=== PATIENT | female | born 1985 | race Caucasian/White ===

== ENCOUNTER 2017-09-25 07:30 | Inpatient (IN) ==
--- OUTSIDE RECORDS SUMMARY | 2017-10-25 05:26 | External Medical Summary | Continuity of Care Document ---
:1985 Author Organization [facility] Address [address] [place], [place] [id number] Phone Care Team Providers Name Role Phone Lucinda Montez MD Unavailable Unavailable Allergies, Adverse Reactions, Alerts Substance Reaction Severity Status No Known Drug Allergies Unknown Active Medications Medication Instructions Dosage Effective Dates Status Comments (start - stop) ONE DAILY take 1 tablet by oral - Active (unknown strength) route every day Problems Condition Effective Dates (start - stop) Clinical Status Follow-Up, Routine - Previous Low Transverse - Matern care for oth or susp poor fetl - grth, 2nd tri, unsp Other malformation of placenta, 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 of - Previous Low Transverse - Encounter for suprvsn of normal - , third trimester 30 weeks gestation of - Previous Low Transverse - Encounter for suprvsn of normal - , second trimester 27 weeks gestation of - Previous Low Transverse - Matern care for oth or susp poor fetl - grth, 2nd tri, unsp 19 weeks gestation of - Previous Low Transverse - Other malformation of placenta, second - trimester Encounter for suprvsn of normal - , second trimester 19 weeks gestation of - Previous Low Transverse - Encounter For Screening For - Streptococcus B 36 weeks gestation of - Matern care for oth or susp poor fetl - grth, 2nd tri, unsp Encounter for suprvsn of normal - , second trimester 14 weeks gestation of - Other malformation of placenta, second - trimester 23 weeks gestation of - Syncope and collapse - Encounter for suprvsn of normal - , second trimester 24 weeks gestation of - Abnormal Pap, LSIL Abnormal Pap, LSIL Encounter for initial prescription of contraceptive pills Follow-Up, Routine Follow-Up, Routine Encntr screen for infections w sexl - mode of transmiss Encounter for screening for oth - infec/parastc diseases Encounter for suprvsn of normal - , first trimester Encounter for screening of - mother 10 weeks gestation of - Encounter for suprvsn of normal - , third trimester 35 weeks gestation of - Encounter for suprvsn of normal - , third trimester 32 weeks gestation of - Migraines Active Active Procedures Procedure Date Unknown Results Test Name Date and Time Measure Units Reference Range Abnormal Flag Comments Unknown Advance Directives Directive Yes / No Effective Date File Name Unknown Encounters Encounter Practice Location Reason(s) Diagnoses Date Provider Care Team Description For Visit Members Geraldine Roman Previous Low Sep- Rodriguez Referring In Womens Transverse 8-201 Beth. Provider: Balaji James-SectionEncounte 7 700 Beth Rodriguez PO Box r For Medical K, 700 1522, Screening For [facility] [place], Streptococcus B36 , [place] [address] [place]O, weeks gestation 120, [place] 120, [id number], of Abel [place], [place] HARO, tel:[phone]. [id number] , [place]. tel: tel: [phone] Geraldine Roman Encounter for Sep- Rodriguez Referring In Womens suprvsn of normal 5-201 Beth. Provider: Lyndsey BROOKS, , third 7 700 Beth Rodriguez PO Box [id number] weeks Medical , 700 1522, gestation of [facility] [place], , [facility] Dr HARO, 120, [place] 120, [id number], Abel Roman, [place], [place], tel:+ [phone]. , [place]. tel: tel: [phone] Geraldine Roman Nov-0 Rodriguez In Womens 9-201 Beth. Health TODD, 7 700 PO [address] Medical [address], [place], , [facility] [place], 120, [id number], [place], [place], tel:[phone] , [place]. tel: [phone] Geraldine Roman Encounter for Oct-3 Rodriguez Referring In Womens suprvsn of normal -201 Beth. Provider: Lyndsey BROOKS, , third 7 700 Beth Rodriguez PO Box [id number] weeks Medical , 700 1522, gestation of [facility] [place], Dr, [facility] Dr HARO, 120, [place] 120, , Abel Roman, [place], [place], tel: [phone]. , [place]. tel: tel: [phone] Geraldine Roman Previous Low Oct-1 Rodriguez Referring In Womens Transverse 7-201 Beth. Provider: Lyndsey BROOKS, C-SectionEncounte 7 700 Beth Rodriguez PO Box r for suprvsn of [facility], 700 1522, normal , [facility] [place], third [id number] Dr, [facility] Dr HARO, weeks gestation 120, [place] 120, , of Abel Roman, [place], [place], tel: [phone]. , [place]. tel: tel: [phone] Geraldine Roman Previous Low Sep-2 Rodriguez Referring In Womens Transverse 5-201 Beth. Provider: Health TODD, C-SectionEncounte 7 700 Beth Rodriguez PO Box r for suprvsn of [facility], 700 1522, normal , [facility] [place], second , [facility] Dr HARO, weeks 120, [place] 120, [id number], gestation of Abel [place], [place], [place], tel: [phone]. , [place]. tel: tel: [phone] [facility] Previous Low Sep-2 Rodriguez Referring In Womens Ultrasound Transverse 5-201 Beth. Provider: Lyndsey BROOKS, C-SectionMatern 7 700 Beth Rodriguez PO Box care for oth or Medical K, 700 1522, [facility], 2nd tri, , [facility] Dr HARO, unspOther 120, [place] 120, , malformation of AbelAbel, [place] placenta, second [place], [place], tel: [id number] weeks [phone]. gestation of , [place]. tel: tel: [phone] [facility] Syncope and Sep-0 Rodriguez Referring In Womens collapseEncounter 1-201 Beth. Provider: Lyndsey BROOKS, for suprvsn of 7 700 Beth Rodriguez PO Box normal , Medical K, 700 1522, second [facility] [place], [id number] weeks , [facility] Dr HARO, gestation of 120, [place] 120, , Abel [place], [place] HARO, tel: [phone]. , [place]. tel: tel: [phone] [facility] Other Aug-2 Rodriguez Referring In Womens malformation of 8-201 Beth. Provider: Lyndsey BROOKS, placenta, second 7 700 Beth Rodriguez PO Box [id number] weeks Medical K, 700 1522, gestation of [facility] [place], , [facility] Dr HARO, 120, [place] 120, , Abel [place], [place] HARO, tel: [phone]. , [place]. tel: tel: [phone] [facility] Previous Low Cyril-3 Rodriguez Referring In Womens Transverse 1-201 Beth. Provider: Lyndsey BROOKS, C-SectionOther 7 700 Beth Rodriguez PO Box malformation of Medical K, 700 1522, placenta, second [facility], trimesterEncounte , [facility] Dr HARO, r for suprvsn of 120, [place] 120, [id number], normal , Abel Roman, second [place], tel: [id number] weeks [phone]. gestation of , [place]. tel: tel: [phone] Geraldine Roman Previous Low Cyril-3 Rodriguez Referring In Womens Ultrasound Transverse 1- Beth. Provider: Health TODD, C-SectionMatern 700 Beth Rodriguez PO Box care for oth or Medical K, 1522, susp poor fetl [facility], barby, 2nd tiny, , [facility] Dr HARO, unsp19 weeks 120, Moses 120, , gestation of Abel Roman, [place], [place], tel: [phone]. , [place]. tel: tel: [phone] Geraldine Roman Matern care for Prateek-2 Rodriguez Referring In Womens oth or susp poor -201 Beth. Provider: Lyndsey BROOKS, fetl [facility], 2nd 7 700 Beth Rodriguez PO Box tri, Medical K, 700 1522, unspEncounter for [facility], suprvsn of normal , [facility] Dr HARO, , second 120, [place] 120, [id number], [id number] weeks Abel Roman, gestation of [place], tel: [phone]. , [place]. tel: tel: [phone] Geraldine Roman Encntr screen for May-3 Rodriguez Referring In Womens infections w sexl 0-201 Beth. Provider: Lyndsey BROOKS, mode of 7 700 Beth Rodriguez PO Box transmissEncounte Medical K, 700 1522, r for screening [facility], for oth , [facility] Dr HARO, infec/parastc 120, Moses 120, , diseasesEncounter Abel Roman, for suprvsn of [place] HARO, tel: normal , [phone]. [facility] , . tel: trimesterEncounte tel: [phone] r for [id number] screening of [id number] weeks gestation of [facility] Abnormal Pap, Jan-0 Rodriguez Referring In Womens LSILAbnormal Pap, 8-201 Beth. Provider: Lyndsey BROOKS, LSILEncounter for 6 700 Beth Rodriguez PO Box [facility], 700 152, prescription of [place] [facility], contraceptive , [facility] Dr HARO, pillsPostpartum 120, [place] 120, , Follow-Up, Abel Roman, RoutinePostpartum [place] HARO, tel: Follow-Up, [phone]. Routine , . tel: tel: [phone] Geraldine Roman Fe-0 Rodriguez Referring In Womens Follow-Up, 9 Beth. Provider: Lyndsey BROOKS, Routine 6 700 Beth Shenb PO Box [facility], 700 1522, [place] [address], [facility] Dr HARO, 120, [place] 120, [id number], Abel Roman, [place] HARO, tel: [phone]. , . tel: tel: [phone] Geraldine Roman Dec-2 Dilan Referring In Womens 4-201 Demarco. 700 Provider: Lyndsey BROOKS, 5 Medical Beth Shenb PO Box [facility], 700 1522, , [facility] [place], [facility], [place] Dr HARO, Abel, [place] 120, [id number], Abel [place], [id number] [place], tel: , [place]. [phone]. tel: tel: [phone] Roman Oct-0 Rodriguez Referring In Womens 7-201 Beth. Provider: Lyndsey BROOKS, 5 700 Beth Rodriguez PO Box [facility], 700 1522, [place] [address], [facility] Dr HARO, 120, [place] 120, [id number], Abel [place], [place], tel: [phone]. , [place]. tel: tel: [phone] Geraldine Roman Sep-0 Rodriguez In Womens 9-201 Beth. Health PA, 5 700 PO Box Medical [address], [place] Dr [address]io, [place], 120, [id number], [facility] [place], tel: [phone] , [place]. tel: [phone] Geraldine Roman Cyril-0 Rodriguez Referring In Womens 7-201 Beth. Provider: Health PA, 5 700 Beth Rodriguez PO Box Medical K, 700 1522, [place] [address], [facility] [place], 120, [place] 120, , Abel [place], [place], [place], tel: [phone]. , [place]. tel: tel: [phone] Family History Family Member Diagnosis Age At Onset Paternal Grandfather Diabetes mellitus No family history of Breast Cancer Mother Osteopenia Maternal Grandmother Diabetes mellitus No family history of Uterine Cancer No family history of Pulmonary Embolism No family history of Ovarian Cancer No family history of Venous Thrombosis No family history of Colon Cancer Immunizations Vaccine Date Status Comments Tdap completed Source: New Immunization Record Influenza, injectable, completed Source: New Immunization Record quadrivalent, preservative free, 3 yrs or older Tdap completed Source: New Immunization Record Influenza, seasonal, injectable, completed Source: New Immunization Record preservative free, 3 yrs or older Payers Payer name Insurance type Covered democrat ID Authorization(s) [facility] [place] [id number] [facility] [place] [id number] [facility] [place] [id number] [facility] [place] [id number] [facility] [place] [id number] Social History Type Description Quantity Date Captured Unknown Vital Signs Date / Height Weight BMI Pulse Blood Temperature Respiratory Body Head BMI Time: Rate Pressure Rate Surface Circumference percentile Area Unknown Chief Complaint And Reason For Visit Unknown Chief Complaint And Reason For Visit Reason For Referral Reason For Referral Unknown Plan Of Care Date Type Action Status Appointment Saarhi Rodriguez BOOKED Appointment Sarahi Rodriguez [facility] R C/S,. PPTL BOOKED Future Order: Lab Order Pap Smear With HPV Reflex If ASCUS Ordered ([id number]) Future Order: Radiology Order Ultrasound OB Follow-up ([id number]) Ordered Future Order: Radiology Order Complete OB Ultrasound > 14 Ordered Weeks ([id number]) Date Type Problem Goal Intervention Status Start Date Unknown. History Of Present Illness Encounter Date Complaint History Of Present Illness This patient has no known history of present illness Functional Status Encounter Date Functional Assessment Cognitive Assessment Unknown Medications Administered Medication Instructions Dosage Effective Dates (start - stop) Status Comments Drug Treatment Unknown Instructions Date Instruction Additional Information labor signs group B strep screening gestational glucose lab screening HIV and other routine tests risk factors identified by history anticipated course of care nutrition and weight gain counseling, special diet toxoplasmosis precautions (cats / raw meat) exercise indications for ultrasound environmental / work hazards travel tobacco (ask, advise, assess, assist and arrange) alcohol illicit / recreational drugs use of any medications (including supplements, vitamins, herbs, OTC drugs) smoking counseling domestic violence seat belt use genetic testing new ob handbook Zika virus assessment & precautions new ob handbook HIV and other routine tests risk factors identified by history anticipated course of care nutrition and weight gain counseling, special diet toxoplasmosis precautions (cats / raw meat) exercise indications for ultrasound environmental / work hazards travel tobacco (ask, advise, assess, assist and arrange) alcohol illicit / recreational drugs use of any medications (including supplements, vitamins, herbs, OTC drugs) smoking counseling domestic violence seat belt use genetic testing risks Zika virus assessment & precautions
--- OUTSIDE RECORDS SUMMARY | 2017-10-25 05:27 | External Medical Summary | Continuity of Care Document ---
:1985 Author Organization [facility] Address [address] [place], [place] [phone] Phone Care Team Providers Name Role Phone [...] for oth or susp poor fetl - gr, 2nd tri, unsp Other malformation of placenta, [...] second trimester 19 weeks gestation of - Matern care for [...] - mother 10 weeks gestation of - Migraines Active Active Procedures Procedure Date Ultrasnd preg uterus, flwup/repeat Results Test Name Date and Time Measure Units Reference Range Abnormal Flag Comments Unknown Advance Directives Directive Yes / No Effective Date File Name Unknown Encounters Encounter Practice Location Reason(s) Diagnoses Date Provider Care Team Description For Visit Members [facility] Previous Low Sep-2 Rodriguez Referring In Womens Transverse 5-201 Beth. Provider: Health TODD C-SectionEncounte 7 700 Beth Rodriguez PO Box r for suprvsn of Medical K, 700 1522, normal , [place] [address], [facility] Dr HARO, weeks 120, [place] 120, , gestation of Abel [place], [place] HARO, tel:[phone]. , [place]. tel: tel: [phone] [facility] Previous Low Sep-2 Rodriguez Referring In Womens Ultrasound Transverse 5-201 Beth. Provider: Health TODD C-SectionMatern 7 700 Beth Rodriguez PO Box care for oth or Medical K, 700 1522, susp poor fetl [place] [facility], 2nd tiny, , [facility] Dr HARO, unspOther 120, [place] 120, , malformation of Abel Roman, [place] placenta, second [place] HARO, tel: [id number] weeks [phone]. gestation of , [place]. tel: tel:[phone] [facility] Syncope and Sep-0 Rodriguez Referring In Womens collapseEncounter 1-201 Beth. Provider: Lyndsey BROOKS, for suprvsn of 7 700 Beth Rodriguez PO Box normal , Medical K, 700 1522, [facility], [email or web address] weeks , [facility] Dr HARO, gestation of 120, [place] 120, [id number], Abel Roman, [place] HARO, tel:[phone]. , [place]. tel: tel: [phone] [facility] Other Aug-2 Rodriguez Referring In Womens malformation of 8-201 Beth. Provider: Lyndsey BROOKS, placenta, second 7 700 Ebth Rodriguez PO Box [id number] weeks Medical K, 700 1522, gestation of [facility], , [facility] Dr HARO, 120, [place] 120, , Abel Roman, [place] HARO, tel:[phone]. , [place]. tel: tel: [phone] [facility] Previous Low May- Rodriguez Referring In Womens Transverse 1-201 Beth. Provider: Lyndsey BROOKS, C-SectionOther 7 700 Beth Rodriguez PO Box malformation of Medical K, 700 1522, placenta, [facility], trimesterEncounte , [facility] Dr HARO, r for suprvsn of 120, [place] 120, [id number], normal , Abel Romna, [place] second [place] HARO, tel: weeks [phone]. gestation of , [place]. tel: tel: [phone] [facility] Previous Low May-3 Rodriguez Referring In Womens Ultrasound Transverse 1-201 Beth. Provider: Lyndsey BROOKS, C-SectionMatern 7 700 Beth Rodriguez PO Box care for oth or Medical K, 700 1522, susp poor fetl [facility], grth, 2nd tri, , [facility] Dr HARO, unsp19 weeks 120, [place] 120, [id number], gestation of Abel Roman, [place] HARO, tel: [phone]. , [place]. tel: tel: [phone] Geraldine Roman Matern care for Prateek-2 Rodriguez Referring In Womens oth or susp poor 7-201 Beth. Provider: Lyndsey BROOKS, fetl gr, 2nd 7 700 Beth Rodriguez PO Box [facility] Medical , 700 1522, unspEncounter for [facility], suprvsn of normal Dr, [facility] Dr HARO, , second 120, [place] 120, , [id number] weeks Abel Roman, gestation of [place] HARO, tel: [phone]. , [place]. tel: tel: [phone] Geraldine Roman Encntr screen for March- Rodriguez Referring In Womens infections w sexl 0-201 Beth. Provider: Lyndsey BROOKS, mode of 7 700 Beth Rodriguez PO Box [facility], 700 1522, r for screening [facility], for oth Dr, [facility] Dr HARO, infec/parastc 120, [place] 120, , diseasesEncounter Abel Roman, for suprvsn of [place] HARO, tel: normal , [phone]. [facility] , [place]. tel: trimesterEncounte tel: [phone] r for [id number] screening of [id number] weeks gestation of [facility] Abnormal Pap, Mar-0 Rodriguez Referring In Womens LSILAbnormal Pap, 8-201 Beth. Provider: Lyndsey BROOKS, LSILEncounter for 6 700 Beth Rodriguez PO Box initial Medical , 700 1522, prescription of [facility], contraceptive , [facility] Dr HARO, pillsPostpartum 120, [place] 120, [id number], Follow-Up, Abel Roman, RoutinePostpartum [place] HARO, tel: Follow-Up, [phone]. Routine , [place]. tel: tel: [phone] Geraldine Roman Feb-0 Rodriguez Referring In Womens Follow-Up, 9-201 Beth. Provider: Lyndsey BROOKS, Routine 6 700 Beth Rodriguez PO Box [facility], 700 1522, [place] [address], [facility] Dr HARO, 120, [place] 120, [id number], Abel [place], [place], tel: [phone]. , [place]. tel: tel: [phone] Geraldine Roman Dec-2 Dilan Referring In Womens 4-201 Demarco. 700 Provider: Lyndsey BROOKS, 5 Medical Beth Rodriguez PO Box [facility], 700 1522, , [facility] [place], [facility], [place] Dr HARO, Abel, [place] 120, , [place], [place], [place], tel: , [place]. . tel: tel: [phone] Geraldine Roman Oct-0 Rodriguez Referring In Womens 7-201 Beth. Provider: Lyndsey BROOKS, 5 700 Beth Rodriguez PO Box [facility], 700 1522, [place] [address], [facility] Dr HARO, 120, [place] 120, [id number], Abel Roman, [place], [place], tel:[phone]. , [place]. tel: tel: [phone] Geraldine Roman Sep-0 Rodriguez In Womens 9-201 Beth. Lyndsey BROOKS, 5 700 [facility] [address], [address], [place], 120, [id number], [place], [place], tel: [phone] , [place]. tel: [phone] Geraldine Roman Cyril-0 Rodriguez Referring In Womens 7-201 Beth. Provider: Lyndsey BROOKS, 5 700 Beth Rodriguez PO Box [facility], 700 1522, [place] [address], [facility] Dr HARO, 120, [place] 120, [id number], Abel Roman, [place], [place], tel:[phone]. , [place]. tel: tel: [phone] Family History Family Member Diagnosis Age At [...] older Payers Payer name Insurance type Covered green party ID Authorization(s) [facility] [id number] [facility] [id number] [facility] [id number] Social History Type Description Quantity Date Captured Unknown Vital Signs Date / Height Weight BMI Pulse Blood Temperature Respiratory Body Head BMI Time: Rate Pressure Rate Surface Circumference percentile Area Unknown Chief Complaint And Reason For Visit Unknown Chief Complaint And Reason For Visit Reason For Referral Reason For Referral Unknown Plan Of Care Date Type Action Status Appointment Sarahi Rodriguez BOOKED Appointment Sarahi Rodriguez [facility] R C/S,. PPTL BOOKED Future Order: Radiology Order Ultrasound OB Follow-up ([id number]) Ordered Future Order: Lab Order Pap Smear With HPV Reflex If ASCUS Ordered ([id number]) Future Order: Radiology Order Complete OB Ultrasound > 14 Ordered Weeks ([id number]) Date Type Problem Goal Intervention Status Start Date Unknown. History Of Present Illness Encounter Date Complaint History Of Present Illness This patient has no known history of present illness Functional Status Encounter Date Functional Assessment Cognitive Assessment Unknown Medications Administered Medication Instructions Dosage Effective Dates (start - stop) Status Comments Drug Treatment Unknown Instructions Date Instruction Additional Information gestational glucose lab screening HIV and other [...]
--- OUTSIDE RECORDS SUMMARY | 2017-10-25 05:27 | External Medical Summary | Continuity of Care Document ---
:1985 Author Organization [facility] Address [address] [place], [place] [id number] Phone Care Team Providers Name Role Phone [...] Follow-Up, Routine - Previous Low Transverse - Encounter for suprvsn of normal - , third trimester 30 weeks gestation of - Previous Low Transverse - Matern care for oth or susp poor fetl - gr, tri, unsp Other malformation of placenta, 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 of - Previous Low Transverse - Encounter for suprvsn of normal - , second trimester 27 weeks gestation of - Previous Low Transverse - Matern care for oth or susp poor fetl - gr, 2nd tri, unsp 19 weeks gestation of [...] - Migraines Active Active Procedures Procedure Date Immuniz admnin, 1 vac, sngl/combo 19 Yrs + Flu Vaccine - Quadrivalent OB Visit No Charge Results Test Name Date and Time Measure Units Reference Range Abnormal Flag Comments Unknown Advance Directives Directive Yes / No Effective Date File Name Unknown Encounters Encounter Practice Location Reason(s) Diagnoses Date Provider Care Team Description For Visit Members Geraldine Roman Encounter for Aug- Rodriguez Referring In Womens suprvsn of normal 1-201 Beth. Provider: Lyndsey BROOKS, , third 7 700 Beth Rodriguez [address] [id number] weeks Medical , 700 1522, gestation of [facility], , [address] [place] [address] HARO, 120, Moses 120, [id number], Abel Roman, [place] ESTRELLITA HARO, tel: [phone]. [id number] , [place]. tel: tel: [phone] Geraldine Roman Previous Low Oct-1 Rodriguez Referring In Womens Transverse 7-201 Beth. Provider: Lyndsey BROOKS, C-SectionEncounte 7 700 Beth Rodriguez PO Box r for suprvsn of Medical K, 700 1522, normal , [facility], third [id number] Dr, [facility] Dr HARO, weeks gestation 120, Moses 120, [id number], of Abel Roman, [place] ESTRELLITA HARO, tel: [phone]. , [place]. tel: tel: [phone] Associates [facility] Previous Low Sep-2 Rodriguez Referring In Womens Transverse 5-201 Beth. Provider: Lyndsey BROOKS, C-SectionEncounte 7 700 Beth Rodriguez PO Box r for suprvsn of Medical K, 700 1522, normal , [facility], second , [facility] Dr HARO, weeks 120, Moses 120, , gestation of Abel Roman, [place] ESTRELLITA, [place], tel: [phone]. , [place]. tel: tel: [phone] Associates [facility] Previous Low Sep-2 Rodriguez Referring In Womens Ultrasound Transverse 5-201 Beth. Provider: Lyndsey BROOKS, C-SectionMatern 7 700 Beth Rodriguez PO Box care for oth or Medical K, 700 1522, susp poor fetl [facility], grth, 2nd tri, , [facility] Dr HARO, unspOther 120, Moses 120, , malformation of Abel Roman, [place] placenta, second ESTRELLITA HARO, tel: [email or web address] weeks [phone]. gestation of , [place]. tel: tel: [phone] Associates [facility] Syncope and Sep-0 Rodriguez Referring In Womens collapseEncounter 1-201 Beth. Provider: Lyndsey BROOKS, for suprvsn of 7 700 Beth Rodriguez PO Box normal , Medical K, 700 1522, second [place] [address]yer, [id number] weeks , [facility] Dr HARO, gestation of 120, Moses 120, [id number], Abel Roman, [place] ESTRELLITA HARO, tel: [phone]. , [place]. tel: tel: [phone] Associates [facility] Other Aug-2 Rodriguez Referring In Womens malformation of Beth. Provider: Lyndsey BROOKS, placenta, second 700 Beth Rodriguez PO Box [id number] weeks Medical K, 700 1522, gestation of [facility], Dr, [facility] Dr HARO, 120, Moses 120, [id number], Abel Roman, [place] ESTRELLITA HARO, tel: [phone]. , [place]. tel: tel: [phone] Geraldine Roman Previous Low May-3 Rodirguez Referring In Womens Transverse - Beth. Provider: Lyndsey BROOKS, C-SectionOther Beth Rodriguez PO Box malformation of Medical K, 1522, placenta, second [facility] Silver[facility], trimesterEncounte , [facility] Dr HARO, r for suprvsn of 120, Moses 120, , normal , Abel Roman, second [place]RELLITA HARO, tel: [email or web address] weeks [phone]. gestation of , [place]. tel: tel: [phone] Geraldine Roman Previous Low May- Rodriguez Referring In Womens Ultrasound Transverse Beth. Provider: Lyndsey BROOKS, C-SectionMatern 700 Beth Rodriguez PO Box care for oth or Medical K, 1522, susp poor fetl [facility] [place], grbarby, 2nd tiny, , [facility] Dr HARO, unsp19 weeks 120, Moses 120, , gestation of Abel Roman, [place] ESTRELLITA HARO, tel: [phone]. , [place]. tel: tel: [phone] Geraldine Roman Matern care for Prateek- Rodriguez Referring In Womens oth or susp poor - Beth. Provider: Lyndsey BROOKS, fetl grth, 2nd 700 Beth Rodriguez PO Box tri, Medical K, 700 1522, unspEncounter for [facility], suprvsn of normal , [facility] Dr HARO, , second 120, Moses 120, , [id number] weeks Abel Roman, [place] gestation of ESTRELLITA HARO, tel: [phone]. , [place]. tel: tel: [phone] Geraldine Roman Encntpeter screen for March- Rodriguez Referring In Womens infections w sexl 0-201 Beth. Provider: Lyndsey BROOKS, mode of 7 700 Beth Rodriguez PO Box [facility] K, 700 1522, r for screening [facility], for oth , [facility] Dr HARO, infec/parastc 120, Moses 120, , diseasesEncounter Abel Roman, for suprvsn of ESTRELLITA HARO, tel: normal , [phone]. [facility] , . tel: trimesterEncounte tel: [phone] r for [phone] screening of [id number] weeks gestation of Associates Abel Abnormal Pap, Mar-0 Rodriguez Referring In Womens LSILAbnormal Pap, 8-201 Beth. Provider: Lyndsey BROOKS, LSILEncounter for 6 700 Beth Rodriguez PO Box initial Medical K, 700 1522, prescription of [facility] Silver[place], contraceptive , [facility] Dr HARO, pillsPostpartum 120, Moses 120, [id number], Follow-Up, Abel Roman, RoutinePostpartum ESTRELLITA HARO, tel: Follow-Up, [phone]. Routine , [place]. tel: tel: [phone] Geraldine Roman Feb-0 Rodriguez Referring In Womens Follow-Up, 9-201 Beth. Provider: Lyndsey BROOKS, Routine 6 700 Beth Rodriguez PO Box Medical K, 700 1522, [place] [address], [facility] Dr HARO, 120, Moses 120, , Abel Roman, ESTRELLITA HARO, tel: [phone]. , [place]. tel: tel: [phone] Geraldine Roman Dec-2 Dilan Referring In Womens 4-201 Demarco. 700 Provider: Lyndsey BROOKS, 5 Medical Beth Rodriguez PO Box Center K, 700 1522, Dr, [facility] [place], 120, [place] Dr HARO, Roman, [facility] 120, [id number], [place], [place], [id number] [place], tel: , . [phone]. tel: tel: [phone] Associates [facility] Oct-0 Rodriguez Referring In Womens 7-201 Beth. Provider: Health TODD, 5 700 Beth Rodriguez PO Box [facility], 700 1522, [place] [address], [facility] Dr HARO, 120, Moses 120, [id number], Abel Roman, [place], [place], tel: [phone]. , [place]. tel: tel: [phone] [facility] Sep-0 Rodriguez In Womens 9-201 Beth. Health TODD, 5 700 [facility] 1522, [place] Dr Silverio, [facility] ESTRELLITA, 120, [id number], [facility] [place], tel: [phone] , [place]. tel: [phone] Geraldine Roman Cyril-0 Rodriguez Referring In Womens 7-201 Beth. Provider: Lyndsey BROOKS, 5 700 Beth Rodriguez PO Box [facility], 700 1522, [place] [address], [facility] Dr HARO, 120, Moses 120, [id number], Abel Roman, [place], [place], tel: [phone]. , [place]. tel: tel: [phone] Family History Family Member Diagnosis Age At [...] Insurance type Covered green party ID Authorization(s) [place] [id number] [place] [id number] [place] [id number] [place] [id number] [place] [id number] Social History Type Description Quantity Date Captured Alcohol Use Details No Caffeine Use Details Unknown Tobacco Use Status Smoking Status Former smoker Vital Signs Date / Height Weight BMI Pulse Blood Temperature Respiratory Body Head BMI Time: Rate Pressure Rate Surface Circumference percentile Area 208.10 32.5 138/58 2017 lbs 9 mm[Hg] 4:11 kg/m PM eter (2) 318 9 3:49 kg/m PM eter (2) Chief Complaint And Reason For Visit Unknown Chief Complaint And Reason For Visit Reason For Referral Reason For Referral Unknown Plan Of Care Date Type Action Status Appointment Sarahi Rodriguez BOOKED Appointment Sarahi Rodriguez [facility] R C/S,. PPTL BOOKED Future Order: Lab Order Pap Smear With HPV Reflex If ASCUS Ordered ([id number]) Future Order: Radiology Order Ultrasound OB Follow-up ([id number]) Ordered Future Order: Radiology Order Complete OB Ultrasound > 14 Ordered Weeks ([id number]) Date Type Problem Goal Intervention Status Start [...]
--- OUTSIDE RECORDS SUMMARY | 2017-10-25 05:27 | External Medical Summary | Continuity of Care Document ---
:1985 Author Organization [facility] Address [address] [place], [place] [phone] Phone Care Team Providers Name Role Phone [...] - Migraines Active Active Procedures Procedure Date OB Visit No Charge Hemoglobin count, colorimetric Hematocrit blood count Glucose test Venpnctr fngr/heel/ear stick routne Results Test Name Date and Time Measure Units Reference Range Abnormal Flag Comments Panel Description: Glucose [Mass/volume] in Serum or Plasma --1 hour post 50 g glucose PO GLUCOSE, GESTATIONAL 73 mg/dL <140 N Test performed at [facility] SCREEN (50G)-140 16:37:00 DIAGNOSTICS [id number] [place] [address]Rdlshuvz: INES ENGLISH DO,MPH Panel Description: HEMOGLOBIN + HEMATOCRIT HEMOGLOBIN 16:37:00 10.8 g/dL 11.7-15.5 L HEMATOCRIT 16:37:00 30.9 % 35.0-45.0 L Test performed at [facility] [id number] [place] [address]Omyrhdls: INES ENGLISH DO,MPH Advance Directives Directive Yes / No Effective Date File Name Unknown Encounters Encounter Practice Location Reason(s) Diagnoses Date Provider Care Team Description For Visit Members Geraldine Roman Previous Low Sep- Rodriguez Referring In Womens Transverse 5-201 Beth. Provider: Health Balaji BROOKS-SectionEncounte 7 700 Beth Rodriguez PO Box r for suprvsn of Medical K, 700 1522, normal , [facility], second Dr, [facility] Dr HARO, [id number] weeks 120, Moses 120, [id number], gestation of Abel Roman, [place] ESTRELLITA, [place], tel: [phone]. , [place]. tel: tel: [phone] Associates [facility] Previous Low Sep-2 Rodriguez Referring In Womens Ultrasound Transverse 5-201 Beth. Provider: Lyndsey BROOKS, C-SectionMatern 7 700 Beth Rodriguez PO Box care for oth or Medical K, 700 1522, susp poor fetl [facility], [facility], 2nd tri, Dr, [facility] Dr HARO, unspOther 120, Moses 120, , malformation of Abel Roman, [place] placenta, second ESTRELLITA, [place], tel: weeks [phone]. gestation of , [place]. tel: tel: [phone] [facility] Syncope and Sep-0 Rodriguez Referring In Womens collapseEncounter 1-201 Beth. Provider: Lyndsey BROOKS, for suprvsn of 7 700 Beth Rodriguez PO Box normal , Medical K, 700 1522, second [facility] Silver[place], [id number] weeks , [facility] Dr HARO, gestation of 120, Moses 120, [id number], Abel Roman, [place] ESTRELLITA HARO, tel: [phone]. , [place]. tel: tel: [phone] Associates [facility] Other Aug-2 Rodriguez Referring In Womens malformation of 8-201 Bteh. Provider: Lyndsey BROOKS, placenta, second 7 700 Beth Rodriguez PO Box weeks Medical , 700 1522, gestation of [facility] [place], , [facility] Dr HARO, 120, Moses 120, [id number], Abel Roman, [place] ESTRELLITA HARO, tel: [phone]. , [place]. tel: tel: [phone] Associates [facility] Previous Low Cyril-3 Rodriguez Referring In Womens Transverse 1-201 Beth. Provider: yLndsey BROOKS, C-SectionOther 7 700 Beth Rodriguez PO Box malformation of Medical K, 1522, placenta, second [facility] [place], trimesterEncsophia Crocker, [facility] Dr HARO, r for suprvsn of 120, Moses 120, , normal , Abel Roman, second ESTRELLITA, ESTRELLITA, tel: [id number] weeks [phone]. gestation of , [place]. tel: tel: [phone] Geraldine Roman Previous Low Cyril-3 Rodriguez Referring In Womens Ultrasound Transverse 1- Beth. Provider: Lyndsey BROOKS, C-SectionMatern Beth Rodriguez PO Box care for oth or Medical K, 1522, susp poor fetl [facility], barby, 2nd tiny, , [facility] Dr HARO, unsp19 weeks 120, Moses 120, , gestation of Abel Roman, ESTRELLITA, ESTRELLITA, tel: [phone]. , [place]. tel: tel: [phone] Geraldine Roman Matern care for Prateek-2 Rodriguez Referring In Womens oth or susp poor -201 Beth. Provider: Lyndsey BROOKS, fetl [facility], 2nd 700 Beth Rodriguez PO Box tri, Medical K, 152, unspEncounter for [facility], suprvsn of normal , [facility] Dr HARO, , second 120, Moses 120, [id number], [id number] weeks Abel Roman, gestation of ESTRELLITA ESTRELLITA, tel: [phone]. , [place]. tel: tel: [phone] Geraldine Roman Encntr screen for May-3 Rodriguez Referring In Womens infections w sexl 0-201 Beth. Provider: Lyndsey BROOKS, mode of 7 700 Beth Rodriguez PO Box [facility] Medical K, 700 1522, r for screening [facility], for oth , [facility] Dr HARO, infec/parastc 120, Moses 120, , diseasesEncounter Abel Roman, for suprvsn of [place], [place], tel: normal , [phone]. [facility] , . tel: trimesterEncounte tel: [phone] r for [phone] screening of [id number] weeks gestation of Associates Abel Abnormal Pap, Mar-0 Rodriguez Referring In Womens LSILAbnormal Pap, 8-201 Beth. Provider: Lyndsey BROOKS, LSILEncounter for 6 700 Beth Rodriguez PO Box [facility] Medical , 700 1522, prescription of [place] [facility], contraceptive , [facility] Dr HARO, pillsPostpartum 120, Moses 120, , Follow-Up, Abel Roman, RoutinePostpartum ESTRELLITA HARO, tel: Follow-Up, [phone]. Routine , . tel: tel: [phone] Geraldine Roman Fe-0 Rodriguez Referring In Womens Follow-Up, 9 Beth. Provider: Lyndsey BROOKS, Routine 6 700 Beth Rodriguez PO Box [facility], 700 1522, [place] [address], [facility] Dr HARO, 120, Moses 120, , Abel Roman, [place], [place], tel: [phone]. , . tel: tel: [phone] Geraldine Roman Dec-2 Dilan Referring In Womens 4-201 Demarco. 700 Provider: Lyndsey BROOKS, 5 Medical Beth Rodriguez PO Box [facility], 700 1522, , [facility] Silver[place], 120, [address] Dr HARO, Abel, Moses 120, [id number], Abel HARO, [id number] [place], tel: , [place]. [phone]. tel: tel: [phone] Geraldine Roman Oct-0 Rodriguez Referring In Womens 7-201 Beth. Provider: Lyndsey BROOKS, 5 700 Beth Rodriguez PO Box [facility], 700 1522, [place] [address], [facility] Dr HARO, 120, Moses 120, [id number], Abel Roman, [facility], [place], tel: [phone]. , . tel: tel: [phone] Geraldine Roman Sep-0 Rodriguez In Womens 9-201 Beth. Health [facility], 5 700 PO Box Medical 1522, [place] [address] Silverio, [facility] [place], 120, [id number], [facility] [place], tel: [phone] , . tel: [phone] Geraldine Roman Cyril-0 Rodriguez Referring In Womens 7-201 Beth. Provider: Health [place], 5 700 Beth Rodriguez PO Box Medical K, 700 1522, [place] [address], [facility] [place], 120, Moses 120, , Abel Roman, [facility], [place], tel: [phone]. , . tel: tel: [phone] Family History Family Member Diagnosis Age At [...] older Payers Payer name Insurance type Covered republican ID Authorization(s) [facility] [id number] [facility] [id number] [facility] [id number] Social History Type Description Quantity Date Captured Alcohol Use Details No Caffeine Use Details Unknown Tobacco Use Status Smoking Status Former smoker Vital Signs Date / Height Weight BMI Pulse Blood Temperature Respiratory Body Head BMI Time: Rate Pressure Rate Surface Circumference percentile Area 203.60 31.8 119/73 -2017 lbs 9 mm[Hg] 4:11 kg/m PM eter (2) Chief Complaint And Reason For Visit Unknown Chief Complaint And Reason For Visit Reason For Referral Reason For Referral Unknown Plan Of Care Date Type Action Status Appointment Sarahi Rodriguez BOOKED Appointment Sarahi Rodriguez [facility] R C/S,. PPTL BOOKED Future Order: Lab Order Pap Smear With HPV Reflex If ASCUS Ordered (WPMPap1) Future Order: Radiology Order Ultrasound OB Follow-up ([id number]) Ordered Future Order: Radiology Order Complete OB Ultrasound > 14 Ordered Weeks ([id number]) Date Type Problem Goal Intervention Status Start [...]
--- OUTSIDE RECORDS SUMMARY | 2017-10-25 05:27 | External Medical Summary | Continuity of Care Document ---
:1985 Author Organization [facility] Address [address] [place], [place] [id number] Phone Care Team Providers Name Role Phone Lucinda Montez MD Unavailable Unavailable Allergies, Adverse Reactions, Alerts Substance Reaction Severity Status No Known Drug Allergies Unknown Active Medications Medication Instructions Dosage Effective Dates Status Comments (start - stop) ONE DAILY take 1 tablet by oral - Active (unknown strength) route every day Problems Condition Effective Dates (start - stop) Clinical Status Follow-Up, Routine - Syncope and collapse - Encounter for suprvsn of normal - , second trimester 24 weeks gestation of - Previous Low Transverse [...] poor fetl - grth, 2nd tri, unsp 14 weeks gestation of - Encounter for suprvsn of normal - , second trimester Abnormal Pap, LSIL Abnormal Pap, LSIL Encounter for initial prescription of contraceptive pills Follow-Up, Routine Follow-Up, Routine Encntr screen for infections w sexl - mode of transmiss Encounter for screening for oth - infec/parastc diseases Encounter for suprvsn of normal - , first trimester Encounter for screening of - mother 10 weeks gestation of - Other malformation of placenta, second - trimester 23 weeks gestation of - Migraines Active Active Procedures Procedure Date OB Visit No Charge Results Test Name Date and Time Measure Units Reference Range Abnormal Flag Comments Unknown Advance Directives Directive Yes / No Effective Date File Name Unknown Encounters Encounter Practice Location Reason(s) Diagnoses Date Provider Care Team Description For Visit Members Geraldine Roman Syncope and Jul- Rodriguez Referring In Womens collapseEncounter 1-201 Beth. Provider: Lyndsey BROOKS, for suprvsn of 7 700 Beth Rodriguez [address] normal , Medical , [address] 1522, [facility] [id number] weeks , [facility] Dr HARO, gestation of 120, Moses 120, , Abel Campbell, [facility], [place], tel:[phone]. , [place]. tel: tel: [phone] Geraldine Roman Other Rodriguez Referring In Womens malformation of 8-201 Beth. Provider: Lyndsey BROOKS, placenta, second 7 700 Beth Rodriguez PO Box [id number] weeks Medical , 700 1522, [facility] Dr, [facility] Dr HARO, 120, Moses 120, , Abel Roman, [facility], [place], tel:[phone]. , [place]. tel: tel: [phone] Geraldine Roman Previous Low Rodriguez Referring In Womens Transverse 1-201 Beth. Provider: Lyndsey BROOKS, C-SectionOther 7 700 Beth Rodriguez PO Box malformation of Medical , 700 1522, placenta, [facility], trimesterEncounte , [facility] Dr HARO, r for suprvsn of 120, Moses 120, [id number], normal , Abel Roman, second [place], [place], tel: [id number] weeks [phone]. gestation of , [place]. tel: tel: [phone] Geraldine Roman Previous Low Cyril-3 Rodriguez Referring In Womens Ultrasound Transverse 1-201 Beth. Provider: Lyndsey BROOKS, C-SectionMatern 700 Beth Rodriguez PO Box care for oth or Medical K, 700 1522, susp poor fetl [facility], [facility], 2nd tiny, , [facility] Dr HARO, unsp19 weeks 120, Moses 120, [id number], gestation of Abel Roman, [place], [place], tel: [phone]. , [place]. tel: tel: [phone] Geraldine Roman Matern care for Prateek-2 Rodriguez Referring In Womens oth or susp poor 7-201 Beth. Provider: Lyndsey BROOKS, fetl [facility], 2nd 7 700 Beth Rodriguez PO Box tri, [id number] weeks Medical , 700 1522, gestation of [facility], pregnancyEncsophia Crocker, [facility] Dr HARO, r for suprvsn of 120, Moses 120, [id number], normal , Abel Roman, second trimester [place], tel: [phone]. , [place]. tel: tel: [phone] Geraldine Roman Encntr screen for March-3 Rodriguez Referring In Womens infections w sexl 0-201 Beth. Provider: Lyndsey BROOKS, mode of Beth Rodriguez PO [facility] , 700 1522, r for screening [facility], for oth , [facility] Dr HARO, infec/parastc 120, Moses 120, , diseasesEncounter Abel Campbell, for suprvsn of [place], tel: normal , [phone]. [facility] , [place]. tel: trimesterEncounte tel: [phone] r for [phone] screening of [id number] weeks gestation of [facility] Abnormal Pap, Mar-0 Rodriguez Referring In Womens LSILAbnormal Pap, 8-201 Beth. Provider: ROBERT JamesILEncounter for 6 700 Beth Rodriguez PO Box initial Medical K, 700 1522, prescription of [place] [address], [facility] Dr HARO, pillsPostpartum 120, Moses 120, [id number], Follow-Up, Abel Roman, RoutinePostpartum [place], tel: Follow-Up, [phone]. Routine , [place]. tel: tel: [phone] Geraldine Roman Feb-0 Rodriguez Referring In Womens Follow-Up, - Beth. Provider: Lyndsey BROOKS, Routine 6 700 Beth Rodriguez PO Box Medical K, 700 1522, [place] [address], [facility] Dr HARO, 120, Moses 120, , Abel Roman, [place], [place], tel: [phone]. , [place]. tel: tel: [phone] Geraldine Roman Dec-2 Dilan Referring In Womens 4-201 Demarco. 700 Provider: Lyndsey BROOKS, 5 Medical Beth Rodriguez PO Box Center K, 700 1522, , [facility], 120, [place] Dr HARO, Abel, [facility] 120, , [place], [place], [id number] [place], tel: , [place]. [phone]. tel: tel: [phone] Geraldine Roman Oct-0 Rodriguez Referring In Womens 7-201 Beth. Provider: Lyndsey BROOKS, 5 700 Beth Rodriguez PO Box Medical K, 700 1522, [place] [address], [facility] Dr HARO, 120, Moses 120, [id number], Abel Roman, [place], [place], tel: [phone]. , [place]. tel: tel: [phone] Geraldine Roman Sep-0 Rodriguez In Womens 9-201 Beth. Lyndsey BROOKS, 5 700 PO Box Medical 1522, [place] Dr [place], [facility] [place], 120, [id number], Abel, [place], tel: [phone] , [place]. tel: [phone] Geraldine Roman Rodriguez Referring In Womens 7-201 Beth. Provider: Lyndsey BROOKS, 5 700 Beth Rodriguez PO Box Medical , 700 1522, [place] [facility] Dr [place], [facility] Dr HARO, 120, Moses 120, [id number], Abel Roman, [place], [place], tel: [phone]. , [place]. tel: tel: [phone] Family History Family Member Diagnosis Age At [...] name Insurance type Covered democrat ID Authorization(s) [facility] [id number] [facility] [id number] [facility] [id number] Social History Type Description Quantity Date Captured Alcohol Use Details No Caffeine Use Details Unknown Tobacco Use Status Smoking Status Former smoker Vital Signs Date / Height Weight BMI Pulse Blood Temperature Respiratory Body Head BMI Time: Rate Pressure Rate Surface Circumference percentile Area 192.50 30.1 118/ lbs 5 mm[Hg] 10:44 kg/m AM eter (2) Chief Complaint And Reason For Visit Unknown Chief Complaint And Reason For Visit Reason For Referral Reason For Referral Unknown Plan Of Care Date Type Action Status Appointment Sarahi Rodriguez BOOKED Appointment Sarahi Rodriguez BOOKED Future Order: Lab Order Pap Smear With HPV Reflex If ASCUS Ordered ([id number]) Future Order: Radiology Order Complete OB Ultrasound > 14 Ordered Weeks ([id number]) Date Type Problem Goal Intervention Status Start Date Unknown. History Of Present Illness Encounter Date Complaint History Of Present Illness This patient has no known history of present illness Functional Status Encounter Date Functional Assessment Cognitive Assessment Unknown Medications Administered Medication Instructions Dosage Effective Dates (start - stop) Status Comments Drug Treatment Unknown Instructions Date Instruction Additional Information HIV and other routine tests risk factors [...]
--- OUTSIDE RECORDS SUMMARY | 2017-10-25 05:27 | External Medical Summary | Continuity of Care Document ---
:1985 Author Organization [facility] Address [address] [place], [place] [id number] Phone Care Team Providers Name Role Phone Lucinda Montez MD Unavailable Unavailable Allergies, Adverse Reactions, Alerts Substance Reaction Severity Status No Known Drug Allergies Unknown Active Medications Medication Instructions Dosage Effective Dates Status Comments (start - stop) ONE DAILY take 1 tablet by oral - Active (unknown strength) route every day Problems Condition Effective Dates (start - stop) Clinical Status Follow-Up, Routine - Encounter for suprvsn of normal - , third trimester 35 weeks gestation of - Previous Low Transverse [...] gestation of - Previous Low Transverse - 37 weeks gestation of - Previous Low Transverse [...] For Visit Members Geraldine Roman Previous Low Rodriguez Referring In Womens Transverse 5-201 Beth. Provider: Health TODD, [id number] weeks 7 700 Beth Rodriguez PO Box gestation of Medical K, [address], [address], [place] [facility] Dr HARO, 120, Moses 120, [id number], Abel Roman, [place], [place], tel: [phone]. [id number] , [place]. tel: tel: [phone] Geraldine Roman Previous Low Nov-2 Rodriguez Referring In Womens Transverse 8-201 Beth. Provider: Health TODD, C-SectionEncounte 7 700 Beth Rodriguez PO Box r For Medical K, 700 1522, Screening For [facility], Streptococcus B36 , [facility] Dr HARO, weeks gestation 120, Moses 120, [id number], of Abel Roman, [place], [place], tel: [phone]. , [place]. tel: tel: [phone] Geraldine Roman Encounter for Nov-1 Rodriguez Referring In Womens suprvsn of normal 5-201 Beth. Provider: Health TODD, , third 7 700 Beth Rodriguez PO Box [id number] weeks Medical K, 700 1522, gestation of [facility], , [facility] Dr HARO, 120, Moses 120, , Abel Roman, [facility], [place], tel: [phone]. , [place]. tel: tel: [phone] Geraldine Roman Encounter for Oct-3 Rodriguez Referring In Womens suprvsn of normal 1-201 Beth. Provider: Lyndsey BROOKS, , third 7 700 Beth Rodriguez PO Box [id number] weeks Medical K, 700 1522, gestation of [facility], , [facility] Dr HARO, 120, Moses 120, , Abel Roman, [place], [place], tel: [phone]. , [place]. tel: tel: [phone] Geraldine Roman Previous Low Oct-1 Rodriguez Referring In Womens Transverse 7-201 Beth. Provider: Lyndsey BROOKS, C-SectionEncounte 7 700 Beth Rodriguez PO Box r for suprvsn of Medical K, 700 1522, normal , [facility], third [id number] , [facility] Dr HARO, weeks gestation 120, Moses 120, , of Abel Roman, [place], [place], tel: [phone]. , [place]. tel: tel: [phone] [facility] Previous Low Sep-2 Rodriguez Referring In Womens Transverse 5-201 Beth. Provider: Lyndsey BROOKS, C-SectionEncounte 7 700 Beth Rodriguez PO Box r for suprvsn of Medical K, 700 1522, normal , [facility] [place], [facility] , [facility] Dr HARO, weeks 120, Moses 120, , gestation of Abel Roman, [place], [place], tel: [phone]. , [place]. tel: tel: [phone] [facility] Previous Low Sep-2 Rodriguez Referring In Womens Ultrasound Transverse 5-201 Beth. Provider: Lyndsey BROOKS, C-SectionMatern 7 700 Beth Rodriguez PO Box care for oth or Medical K, 700 1522, susp poor fetl [facility] [place], [facility], 2nd tri, , [facility] Dr HARO, unspOther 120, Moses 120, , malformation of Abel Roman, [place] placenta, second [place], [place], tel: [id number] weeks [phone]. gestation of , [place]. tel: tel: [phone] [facility] Syncope and Sep-0 Rodriguez Referring In Womens collapseEncounter 1-201 Beth. Provider: Lyndsey BROOKS, for suprvsn of 7 700 Beth Rodriguez PO Box normal , Medical K, 700 1522, second [facility] [place], [id number] weeks , [facility] Dr HARO, gestation of 120, Moses 120, , Abel Roman, [place], [place], tel: [phone]. , [place]. tel: tel: [phone] [facility] Other Aug-2 Rodriguez Referring In Womens malformation of 8-201 Beth. Provider: Lyndsey BROOKS, placenta, second 7 700 Beth Rodriguez PO Box [id number] weeks Medical K, 700 1522, gestation of [facility] [place], , [facility] Dr HARO, 120, Moses 120, , Abel Roman, [place], tel: [phone]. , [place]. tel: tel: [phone] Geraldine Roman Previous Low May-3 Rodriguez Referring In Womens Transverse 1-201 Beth. Provider: Lyndsey BROOKS, C-SectionOther 7 700 Beth Rodriguez PO Box malformation of Medical K, 700 1522, placenta, [facility] [place], trimesterEncounte , [facility] Dr HARO, r for suprvsn of 120, Moses 120, [id number], normal , Abel Roman, second [place], tel: [id number] weeks [phone]. gestation of , [place]. tel: tel: [phone] Geraldine Roman Previous Low May-3 Rodriguez Referring In Womens Ultrasound Transverse - Beth. Provider: Lyndsey BROOKS, C-SectionMatern 7 700 Beth Rodriguez PO Box care for oth or Medical K, 700 1522, susp [facility], [facility], 2nd Dr tiny, [facility] Dr HARO, unsp19 weeks 120, Moses 120, , gestation of Abel Abel, [place], tel: [phone]. , [place]. tel: tel: [phone] Geraldine Roman Matern care for Prateek-2 Rodriguez Referring In Womens oth or susp poor - Beth. Provider: Lyndsey BROOKS, fetl [facility], 2nd 7 700 Beth Rodriguez PO Box tri, Medical K, 700 1522, unspEncounter for [facility], suprvsn of normal Dr, [facility] Dr HARO, , second 120, Moses 120, [id number], [id number] weeks Abel Roman, [place] gestation of [place], tel: [phone]. , [place]. tel: tel: [phone] Geraldine Roman Encntr screen for March-3 Rodriguez Referring In Womens infections w sexl 0-201 Beth. Provider: Lyndsey BROOKS, mode of 7 700 Beth Rodriguez PO Box [facility], 700 1522, r for screening [facility] [place], for oth , [facility] Dr HARO, infec/parastc 120, Moses 120, , diseasesEncounter Abel Roman, for suprvsn of [place], tel: normal , [phone]. first , [place]. tel: trimesterEncounte tel: [phone] r for [id number] screening of [id number] weeks gestation of [facility] Abnormal Pap, Mar-0 Rodriguez Referring In Womens LSILAbnormal Pap, 8-201 Beth. Provider: Lyndsey BROOKS, LSILEncounter for 6 700 Beth Rodriguez PO Box initial [facility], 700 1522, prescription of [facility] [place], contraceptive , [facility] Dr HARO, pillsPostpartum 120, Moses 120, , Follow-Up, Abel Roman, RoutinePostpartum [place], tel: Follow-Up, [phone]. Routine , [place]. tel: tel: [phone] [facility] Feb-0 Rodriguez Referring In Womens Follow-Up, 9-201 Beth. Provider: Lyndsey BROOKS, Routine 6 700 Beth Rodriguez PO Box [facility], 700 1522, [place] [address], , [facility] Dr HARO, 120, Moses 120, , Abel Roman, [place], [place], tel: [phone]. , [place]. tel: tel: [phone] [facility] Dec-2 Dilan Referring In Womens 4-201 Demarco. 700 Provider: Lyndsey BROOKS, 5 Medical Beth Rodriguez PO Box [facility], 700 1522, , [facility] [place], [facility], Center Dr HARO, Abel, Moses 120, , Abel [place], [id number] [place], tel: , [place]. [phone]. tel: tel: [phone] Geraldine Roman Oct-0 Rodriguez Referring In Womens 7-201 Beth. Provider: Health PA, 5 700 Beth Rodriguez PO Box Medical K, 700 1522, [place] [address], [facility] [place], 120, Moses 120, [id number], Abel [place], [place], [place], tel: [phone]. , [place]. tel: tel: [phone] Geraldine Roman Sep-0 Rodriguez In Womens 9-201 Beth. Health PA, 5 700 PO Box Medical 1522, [place] [address] [place], [facility] [place], 120, [id number], [place], [place], tel: [phone] , [place]. tel: [phone] Geraldine Roman May-0 Rodriguez Referring In Womens 7-201 Beht. Provider: Health PA, 5 700 Beth Rodriguez PO Box Medical K, 700 1522, [place] [address], [facility] Dr HARO, 120, Moses 120, [id number], Abel [place], [place], tel: [phone]. , [place]. tel: tel: [phone] Family History Family Member Diagnosis Age At [...] older Payers Payer name Insurance type Covered constitution party ID Authorization(s) [facility] [place] [id number] [facility] [place] [id number] [facility] [place] [id number] [facility] [place] [id number] [facility] [id number] Social History Type Description Quantity Date Captured Alcohol Use Details No Caffeine Use Details Unknown Tobacco Use Status Smoking Status Former smoker Vital Signs Date / Height Weight BMI Pulse Blood Temperature Respiratory Body Head BMI Time: Rate Pressure Rate Surface Circumference percentile Area 220.10 34.4 131/70 2017 lbs 7 mm[Hg] 3:42 kg/m PM eter (2) Chief Complaint And Reason For Visit Unknown Chief Complaint And Reason For Visit Reason For Referral Reason For Referral Unknown Plan Of Care Date Type Action Status Appointment Sarahi Rodriguez [facility] R C/S,. PPTL BOOKED Appointment Sarahi Rodriguez BOOKED Future Order: Lab Order Pap Smear With HPV Reflex If ASCUS Ordered ([id number]) Future Order: Radiology Order Ultrasound OB Follow-up ([id number]) Ordered Future Order: Radiology Order Complete OB Ultrasound > 14 Ordered Weeks ([id number]) Date Type Problem Goal Intervention Status Start [...]
--- OUTSIDE RECORDS SUMMARY | 2017-10-25 05:27 | External Medical Summary | Continuity of Care Document ---
:1985 Author Organization [facility] Address [address] [place], [place] [id number] Phone Care Team Providers Name Role Phone [...] K, 700 1522, Screening [facility], Streptococcus B36 , [facility] Dr HARO, weeks gestation 120, [place] 120, [id number], of Abel [place], [place] HARO, tel:[phone] [id number] , [place]. tel: tel: [phone] Geraldine Roman Encounter for Sep- Rodriguez Referring In Womens suprvsn of normal 5-201 Beth. Provider: Lyndsey BROOKS, , third 7 700 Beth Rodriguez [address] [email or web address] weeks Medical , 700 1522, gestation of [facility], , [facility] Dr HARO, 120, [place] 120, [id number], Abel Roman, [place], [place], tel:[phone]. , [place]. tel: tel: [phone] Geraldine Roman Nov-0 Rodriguez In Womens 8-201 Beth. Health TODD, 7 700 [address] Medical [address], [facility], , [facility] [place], 120, [id number], [place], [place], tel:[phone] , [place]. tel: [phone] Geraldine Roman Encounter for Oct-3 Rodriguez Referring In Womens suprvsn of normal 1-201 Beth. Provider: Lyndsey BROOKS, , third 7 700 Beth Rodriguez [address] [email or web address] weeks Medical , 700 1522, gestation of [facility], Dr, [facility] Dr HARO, 120, [place] 120, , Abel [place], [place], [place], tel: [phone]. , [place]. tel: tel: [phone] Geraldine Roman Previous Low Oct-1 Rodriguez Referring In Womens Transverse 7-201 Beth. Provider: Lyndsey BROOKS, C-SectionEncounte 7 700 Beth Rodriguez PO Box r for suprvsn of [facility], 700 1522, normal , [facility], third [email or web address] Dr, [facility] Dr HARO, weeks gestation 120, [place] 120, , of Abel Roman, [place], tel: [phone]. , [place]. tel: tel: [phone] Geraldine Roman Previous Low Sep-2 Rodriguez Referring In Womens Transverse 5-201 Beth. Provider: Health TODD, C-SectionEncounte 7 700 Beth Rodriguez PO Box r for suprvsn of [facility], 700 1522, normal , [facility], second , [facility] Dr HARO, [email or web address] weeks 120, [place] 120, [id number], gestation of Abel [place], [place], [place], tel: [phone]. , [place]. tel: tel: [phone] Associates Abel Previous Low Sep-2 Rodriguez Referring In Womens Ultrasound Transverse 5-201 Beth. Provider: Lyndsey BROOKS, C-SectionMatern 7 700 Beth Rodriguez PO Box care for oth or Medical K, 700 1522, susp [facility], grth, 2nd tri, , [facility] Dr HARO, unspOther 120, [place] 120, , malformation of [place]Abel, [place] placenta, second [place], [place], tel: [email or web address] weeks [phone]. gestation of , [place]. tel: tel: [phone] Associates Abel Syncope and Sep-0 Rodriguez Referring In Womens collapseEncounter 1-201 Beth. Provider: Lyndsey BROOKS, for suprvsn of 7 700 Beth Rodriguez PO Box normal , Medical K, 700 1522, second [facility], [id number] weeks , [facility] Dr HARO, gestation of 120, [place] 120, , Abel [place], [place] HARO, tel: [phone]. , [place]. tel: tel: [phone] Associates [facility] Other Aug-2 Rodriguez Referring In Womens malformation of 8-201 Beth. Provider: Lyndsey BROOKS, placenta, second 7 700 Beth Rodriguez PO Box [id number] weeks Medical K, 700 1522, gestation of [facility], , [facility] Dr HARO, 120, [place] 120, , Abel [place], [place] HARO, tel: [phone]. , [place]. tel: tel: [phone] Associates Abel Previous Low Cyril-3 Rodriguez Referring In Womens Transverse 1-201 Beth. Provider: Lyndsey BROOKS, C-SectionOther 7 700 Beth Rodriguez PO Box malformation of Medical K, 700 1522, placenta, second [facility], trimesterEncounte , [facility] Dr HARO, r for suprvsn of 120, [place] 120, [id number], normal , Abel Roman, second [place]RELLITAESTRELL[place], tel: [id number] weeks [phone]. gestation of , [place]. tel: tel: [phone] Geraldine Roman Previous Low Cyril-3 Rodriguez Referring In Womens Ultrasound Transverse 1- Beth. Provider: Health TODD, C-SectionMatern 700 Beth Rodriguez PO Box care for oth or Medical K, 1522, susp poor fetl [facility], barby, 2nd tiny, , [facility] Dr HARO, unsp19 weeks 120, [place] 120, , gestation of Abel [place], [place], [place], tel: [phone]. , [place]. tel: tel: [phone] Geraldine Roman Matern care for Prateek-2 Rodriguez Referring In Womens oth or susp poor -201 Beth. Provider: Lyndsey BROOKS, fetl [facility], 2nd 7 700 Beth Rodriguez PO Box tri, Medical K, 700 1522, unspEncounter for [facility], suprvsn of normal , [facility] Dr HARO, , second 120, [place] 120, [id number], [id number] weeks Abel Roman, gestation of [place] EST[place], tel: [phone]. , [place]. tel: tel: [phone] Geraldine Roman Encntr screen for May-3 Rodriguez Referring In Womens infections w sexl 0-201 Beth. Provider: Lyndsey BROOKS, mode of 7 700 Beth Rodriguez PO Box transmissEncounte Medical K, 700 1522, r for screening [facility], for oth , [facility] Dr HARO, infec/parastc 120, [place] 120, , diseasesEncounter Abel Roman, for suprvsn of [place]ITA HARO, tel: normal , [phone]. [facility] , . tel: trimesterEncounte tel: [phone] r for [id number] screening of [id number] weeks gestation of [facility] Abel Abnormal Pap, Jan-0 Rodriguez Referring In Womens LSILAbnormal Pap, 8-201 Beth. Provider: Lyndsey BROOKS, LSILEncounter for 6 700 Beth Rodriguez PO Box [facility], 700 152, prescription of [facility], contraceptive , [facility] Dr HARO, pillsPostpartum 120, [place] 120, , Follow-Up, Abel Roman, RoutinePostpartum [place] HARO, tel: Follow-Up, [phone]. Routine , . tel: tel: [phone] Geraldine Roman Fe-0 Rodriguez Referring In Womens Follow-Up, 9 Beth. Provider: Lyndsey BROOKS, Routine 6 700 Beth Shenb PO Box [facility], 700 1522, [facility] [address], [facility] Dr HARO, 120, [place] 120, [id number], Abel Roman, [place] HARO, tel: [phone]. , . tel: tel: [phone] Geraldine Roman Dec-2 Dilan Referring In Womens 4-201 Demarco. 700 Provider: Lyndsey BROOKS, 5 Medical Beth Shenb PO Box [facility], 700 1522, , [facility], [facility], [place] [address] [place]O, Abel, [place] 120, [id number], Abel [place], [id number] [place], tel: , [place]. [phone]. tel: tel: [phone] Roman Oct-0 Rodriguez Referring In Womens 7-201 Beth. Provider: Lyndsey BROOKS, 5 700 Beth Rodriguez PO Box [facility], 700 1522, [facility] [address], [facility] Dr HARO, 120, [place] 120, [id number], [place], [place], [place], tel: [phone]. , [place]. tel: tel: [phone] Geraldine oRman Sep-0 Rodriguez In Womens 9-201 Beth. Health [place], 5 700 [address] Medical [address], [address] [place], [place], 120, [id number], [facility] [place], tel: [phone] , [place]. tel: [phone] Geraldine Roman Cyril-0 Rodriguez Referring In Womens 7-201 Beth. Provider: Health PA, 5 700 Beth Rodriguez PO Box Medical K, 700 1522, [facility] [address], [facility] [place], 120, [place] 120, , [place], [place], [place], tel: [phone]. , [place]. tel: tel: [phone] Family History Family Member Diagnosis Age At [...] older Payers Payer name Insurance type Covered libertarian ID Authorization(s) [facility] [place] [id number] [facility] [place] [id number] [facility] [place] [id number] [facility] [place] [id number] [facility] [place] [id number] Social History Type Description Quantity Date Captured [...] Appointment Sarahi Rodriguez BOOKED Appointment Sarahi Rodriguez [facility],. PPTL BOOKED Future Order: Lab Order Pap Smear With HPV Reflex If ASCUS Ordered ([id number]) Future Order: Radiology Order Ultrasound OB Follow-up ([id number]) Ordered Future Order: Radiology Order Complete OB Ultrasound > 14 Ordered Weeks ([id number]) Date Type Problem Goal Intervention Status Start [...]
[2017-10-25] MEDS ORDERED: FAMOTIDINE PB 20 MG/50 ML BAG IV ONE (05:32)
[2017-10-25] MEDS ORDERED: CITRIC ACID/SODIUM CITRATE 30ml PO ONE (05:32)
[2017-10-25] MEDS ORDERED: NOZIN NASAL SWAB NAS ONE (05:32)
[2017-10-25] MEDS ORDERED: CEFAZOLIN PREMIX (MC ONLY) 2 GM/50 ML BAG IV ONE (05:32)
[2017-10-25] MEDS: LR 1,000 ML IV SCH ×4 (06:00→09:55)
[2017-10-25 06:15] VITALS: BMI 34.2
[2017-10-25] MEDS ORDERED: MORPHINE SULFATE PF 5mg/10ml INJ (Duramorph) ONE (06:45)
[2017-10-25] MEDS ORDERED: FentaNYL 100 MCG/2 ML INJECTION ONE (06:46)
[2017-10-25] MEDS: OXYTOCIN BOLUS BAG 30 UNIT/500 ML ML IV SCH ×2 (07:50→08:09)
[2017-10-25] MEDS ORDERED: NALOXONE 2 MG/2 ML INJECTION PFS IVP PRN (08:17)
[2017-10-25] MEDS ORDERED: METOCLOPRAMIDE 10mg/2ml INJECTION IVP PRN ×2 (08:17→08:18)
[2017-10-25] MEDS ORDERED: ONDANSETRON 4 MG/2 ML INJECTION IVP PRN (08:17)
[2017-10-25] MEDS ORDERED: NALBUPHINE 10 MG/ML INJECTION IVP PRN (08:17)
[2017-10-25] MEDS ORDERED: DiphenhydrAMINE 50 MG/ML INJECTION IVP PRN (08:17)
[2017-10-25] MEDS ORDERED: HYDROCORTISONE 2.5% CREAM 30gm RECTALLY PRN (08:18)
[2017-10-25] MEDS ORDERED: DiphenhydrAMINE 25 MG CAPSULE PO PRN (08:18)
[2017-10-25] MEDS ORDERED: ACETAMINOPHEN 500 MG TABLET PO PRN (08:18)
[2017-10-25] MEDS ORDERED: CALCIUM CARBONATE Chewable 500mg TABLET PO PRN (08:18)
[2017-10-25] MEDS ORDERED: SIMETHICONE 80 MG CHEWABLE TABLET PO PRN (08:18)
[2017-10-25] MEDS ORDERED: OXYTOCIN DRIP 30 UNIT/500 ML ML IV SCH (08:30)
--- NOTE | 2017-10-25 08:47 | Operative Note ---
Operative Note - Date of Operation Date of Operation: 10/25/17 - General : 3 Para: 2 Estimated or Known Gestational Age (weeks): 39 Estimated or Known Gestational Age (days): 2 - Preoperative Diagnosis Previous Section, Desires sterilization - Postoperative Diagnosis same as preoperative - Procedure Repeat, Low-transverse , Tubal Ligation (Right fibriectomy and left modified [place]) - Surgeon Surgeon: Beth Rodriguez MD - Cigarette Tester OB Cigarette Tester: Puma Schreiber MD - Anesthesia Anesthesia Provider: Miguel Newberry CRNA Anesthesia Type: Spinal - Complications Complications: None - Estimated Blood Loss Estimated Blood Loss:: 700 - Findings Findings: viable female, clear fluids, normal uterus, normal adenexa, cephalic, OP Comments: Fascial adhesions. Mild bladder adhesions. - APGARS : 8,9 - [place] Weight [place] Weight (grams): 3302 - Name Name: Tereza - Description of Procedure Description of Procedure: The patient was taken to the operating room where anesthesia was obtained . She was placed in the dorsal supine position with a leftward tilt. A Mayen catheter was placed . She was prepared and draped in the normal sterile fashion. Her previous Pfannenstiel was excised, and the incision was carried down to the fascia. The fascia was incised in the midline with the scalpel and then extended laterally with the Giles scissors. The fascia was elevated, and the underlying rectus muscles were dissected off with the scalpel. The peritoneum was entered bluntly with minimal dissection using the Alessandra. This was extended superiorly and inferiorly with good visualization of the bladder. The bladder blade was inserted. The bladder adhesions were carefully dissected off the lower uterine segment, which was found to be thin. The lower uterine segment was incised in a transverse fashion [id number] with the scalpel and bluntly extended. The membranes were ruptured. The infant s head was delivered atraumatically. The nose and mouth were suctioned. The cord was clamped and cut. The was handed to Dr. Kirby. The placenta delivered spontaneously. The uterus was exteriorized and cleared of all clots and debris. The uterus was closed with running, locked 0-monocryl. Hemostasis was obtained on the serosal edges with cautery. The majority of the right Fallopian tube was adherent to the ovary, so a fimbriectomy was performed. The distal tube was clamped with a Alessandra. The tube was doubly ligated with chromic. The fimbria were excised. The left Fallopian tube was identified and carried out to the fimbriae. An avascular segment was grasped with a Ranulfo. The segment was ligated with chromic. Each end of the segment was ligated with chromic. The tube segment was excised, and good hemostasis was noted. The uterus was returned to the abdomen. The gutters were cleared of all clots and debris. The uterine incision was inspected one final time and still noted to be hemostatic. The peritoneum was closed with running 2-0 vicryl. Hemostasis was obtained in the rectus muscles with the cautery. The fascia was closed with running 0-vicryl. Hemostasis was obtained in the subcutaneous tissue with the cautery. The deep tissue was reapproximated with 3 interrupted mattress sutures of 2-0 chromic. The skin was closed with 4-0 vicryl in a subcuticular manner. Steri-strips were placed. Sponge, sharp, and instrument counts were correct. The patient tolerated the procedure well and was taken to the recovery room in good condition.
[2017-10-25] MEDS: D5LR 1,000 ML IV SCH ×2 (09:02→21:36)
[2017-10-25] MEDS: IBUPROFEN 800 MG TABLET PO PRN ×2 (10:07→18:13)
[2017-10-25] MEDS: HYDROCODONE/APAP 5mg/325mg TABLET PO PRN ×5 (10:08→22:31)
[2017-10-25] MEDS: SIMETHICONE 80 MG CHEWABLE TABLET PO SCH ×4 (12:29→22:31)
[2017-10-25] MEDS: DOCUSATE CALCIUM 240 MG CAPSULE PO SCH (13:34)
--- NOTE | 2017-10-25 14:54 | Anesthesia Postoperative Note ---
- Date and Time Date: 10/25/17 Time: 14:53 - Status Patient Participated in Evaluation: Patient Participated in Person Vital Signs: Temperature 97.8 F 10/25/17 06:05 Pulse Rate 86 10/25/17 12:30 Respiratory Rate 16 10/25/17 12:30 Blood Pressure 131/71 10/25/17 12:30 Pulse Oximetry 100 10/25/17 12:30 Respiratory Function: Airway Patent Cardiovascular Function: Regular Pulse EKG: Sinus Rhythm Hydration: Taking PO Fluids Complications During Recover: None Apparent - Follow-Up Instructions Instructions: Per Surgeon
[2017-10-26] MEDS: IBUPROFEN 800 MG TABLET PO PRN ×2 (02:48→16:03)
[2017-10-26] MEDS: Oxycodone/Acetaminophen 5/325 1 TAB PO PRN ×5 (02:49→21:42)
--- NOTE | 2017-10-26 09:51 | OB/GYN Progress Note ---
OB-PP Progress Note - General PPD1 Maternal Group B Strep: Negative Maternal blood type: A+ Maternal Rubella Status: Immune - Subjective Date: 10/26/17 Lochia: Minimal Pain: controlled Nausea or Vomiting Present: No - Objective Vital Signs: Last Vital Signs Temp 97.5 F 10/26/17 01:00 Pulse 60 10/26/17 05:00 Resp 16 10/26/17 05:00 BP 144/81 H 10/26/17 05:00 Pulse Ox 97 10/26/17 01:00 General: alert and oriented Abdomen: fundus firm, non-tender Incision: dry, dressed Extremities: non-tender Side: bilateral Site: ankle Edema Degree: 1+ Laboratory: Laboratory Results - last 24 hr 10/25/17 12:48 WBC 14.6 H RBC 3.91 L Hgb 10.5 L Hct 32.7 L MCV 83.6 MCH 26.9 MCHC 32.1 RDW Std Deviation 37.8 Plt Count 218 MPV 11.5 - Assessment Assessment: SP, Repeat C/S, Tubal Ligation - Plan Plan: routine care
[2017-10-26] MEDS: DOCUSATE CALCIUM 240 MG CAPSULE PO SCH (13:10)
[2017-10-26] MEDS: SIMETHICONE 80 MG CHEWABLE TABLET PO SCH ×5 (13:11→21:42)
[2017-10-27] MEDS: IBUPROFEN 800 MG TABLET PO PRN ×3 (01:34→18:35)
[2017-10-27] MEDS: Oxycodone/Acetaminophen 5/325 1 TAB PO PRN ×6 (01:35→22:48)
[2017-10-27] MEDS: SIMETHICONE 80 MG CHEWABLE TABLET PO SCH ×4 (10:02→22:48)
[2017-10-27] MEDS: DOCUSATE CALCIUM 240 MG CAPSULE PO SCH (10:02)
--- NOTE | 2017-10-27 10:49 | OB/GYN Progress Note ---
OB-PP Progress Note - General PPD2 Maternal Group B Strep: Negative Maternal blood type: A+ Maternal Rubella Status: Immune - Subjective Date: 10/27/17 Lochia: Minimal Pain: moderate Voiding: voiding Nausea or Vomiting Present: No - Objective Vital Signs: Last Vital Signs Temp 98.1 F 10/27/17 05:30 Pulse 82 10/27/17 10:00 Resp 18 10/27/17 10:00 BP 154/78 H 10/27/17 10:00 Pulse Ox 97 10/27/17 10:00 General: alert and oriented - Plan Plan: routine care Expected date of discharge: 10/28/17
[2017-10-27 20:45] VITALS: RESP 18; O2SAT 98
[2017-10-28] MEDS: Oxycodone/Acetaminophen 5/325 1 TAB PO PRN (05:59)
[2017-10-28] MEDS: IBUPROFEN 800 MG TABLET PO PRN (05:59)
[2017-10-28 06:14] VITALS: BP 139/87; PULSE 75; TEMP 98.7
--- NOTE | 2017-10-28 08:26 | OB/GYN Progress Note ---
OB-PP Progress Note - General PPD3 POD:: POD3 Maternal Group B Strep: Negative Maternal blood type: A+ Maternal Rubella Status: Immune - Subjective Date: 10/28/17 Lochia: Minimal Pain: controlled Voiding: voiding Nausea or Vomiting Present: No - Objective Vital Signs: Last Vital Signs Temp 98.7 F 10/28/17 06:02 Pulse 75 10/28/17 06:02 Resp 18 10/28/17 06:02 BP 139/87 10/28/17 06:02 Pulse Ox 98 10/28/17 06:02 General: alert and oriented Respiratory: non-labored Abdomen: fundus firm Incision: normal, clean, dry Side: bilateral Site: ankle Edema Degree: 1+ - Assessment (1) Status: Acute - Assessment Assessment: SP, Repeat C/S, Tubal Ligation - Plan Plan: routine care, discharge home Expected date of discharge: 10/28/17
== END 2017-10-28 11:00 | disposition home or self-care (01) | DRG 766 ==
LOC: MC 10-25 05:20
PROVIDERS: ADMIT Obstetrics & Gynecology; ATTEND Obstetrics & Gynecology